=== PATIENT | female | born 1960 | race Caucasian/White ===

== ENCOUNTER 2017-07-26 13:47 | Outpatient (CLI) | payer BC ==
--- NOTE | 2017-07-26 14:41 | RAD ---
CERVICAL SPINE RADIOGRAPHS 3 VIEWS: INDICATION: Cervical region disk degeneration. FINDINGS: There is anterior metallic fusion of C4-5 with an intervening disk space prosthesis. Slight anterio r location of the metal plate relative to the anterior aspect of the C4 and C5 vertebral bodies as w ell as slight anterior location of the radiopaque markers of the disk space prosthesis projecting ju st anterior to the confines of the alutiiq disk space. There is osseous fusion of C5-6 and C6-7. Th ere is slight retrolisthesis of C4 on 5. Multilevel degenerative change present including marginal osteophyte formation and facet osteoarthritis. Left lateral mass of C1 is partially obscured by ove rlying dentition and skull base structures. No obvious acute abnormality of the dens. The right la teral mass of C1 is appropriately aligned. IMPRESSION: Postoperative and degenerative findings of the cervical spine as above. POS: KADIE
== END 2017-07-26 13:48 | disposition home or self-care (01) ==
LOC: TBSIIMAG 13:47
PROVIDERS: ATTEND Neurological Surgery
DX: M50.30 Other cervical disc degeneration, unspecified cervical region (principal); M47.812 Spondylosis without myelopathy or radiculopathy, cervical region; Z98.1 Arthrodesis status
CPT/HCPCS: 72040

== ENCOUNTER 2018-07-04 08:14 | Outpatient (CLI) | payer BC ==
--- NOTE | 2018-07-04 11:24 | MMO ---
BILATERAL SCREENING MAMMOGRAMS: Date: 07/04/18 HISTORY: 58-year-old female patient presenting for screening mammography. History of bilateral breast augmenta tion. This patient's mammogram was interpreted with the assistance of computer-aided detection. COMPARISON: 06/12/17, 03/23/16, 02/24/15. FINDINGS: There are intact bilateral retropectoral breast prostheses noted. There is a heterogeneously dense pa renchymal pattern, which may lower the sensitivity of mammography. A few benign-appearing calcificati ons are again seen in the right breast. No dominant mass or suspicious grouping of microcalcification s are seen in either breast. IMPRESSION: BIRADS 2: Benign Finding(s) Routine annual mammographic screening is recommended. POS: RAMÓN
== END 2018-07-04 08:15 | disposition home or self-care (01) ==
LOC: SCSMAMMO 08:14
PROVIDERS: ATTEND Family Medicine
DX: Z12.31 Encounter for screening mammogram for malignant neoplasm of breast (principal)
CPT/HCPCS: 77067

== ENCOUNTER 2020-07-15 09:17 | Outpatient (CLI) | payer BC ==
--- NOTE | 2020-07-15 10:25 | MMO ---
Bilateral MAMMO Bilat Screen [facility]. CLINICAL HISTORY: Patient is 60 years old and is seen for screening. The patient has the following family history of breast cancer: sister, at age 42, malignant (generic). The patient has no personal history of cancer. The patient has a history of bilateral Implants in 2002 and left Excisional Biopsy in 2001 - benign. VIEWS: The views performed were: bilateral craniocaudal with tomosynthesis; bilateral mediolateral oblique with tomosynthesis; and bilateral Implant displaced with tomosynthesis. FILMS COMPARED: The present examination has been compared to prior imaging studies performed at [facility] on 07/09/2019, and at [facility] on 03/23/2016, 06/12/2017 and 07/04/2018. This study has been interpreted with the assistance of computer-aided detection. MAMMOGRAM FINDINGS: The breasts are heterogeneously dense, which could obscure a lesion on mammography. Finding 1: There are stable benign appearing calcifications seen in both breasts. Finding 2: Normal implants are present. There are no suspicious masses, suspicious calcifications, or new areas of architectural distortion. IMPRESSION: THERE IS NO MAMMOGRAPHIC EVIDENCE OF MALIGNANCY. A ROUTINE FOLLOW-UP MAMMOGRAM IN 1 YEAR IS RECOMMENDED. THE RESULTS OF THIS EXAM WERE SENT TO THE PATIENT. ACR BI-RADS Category 2 - Benign finding MAMMOGRAPHY NOTE: 1. A negative mammogram report should not delay a biopsy if a dominant of clinically suspicious mass is present. 2. Approximately 10% to 15% of breast cancers are not detected by mammography. 3. Adenosis and dense breasts may obscure an underlying neoplasm. Reported by: LAURIE GARCIA MD Electonically Signed: [id number]
== END 2020-07-15 09:18 | disposition home or self-care (01) ==
LOC: BICMAMMO 09:17
PROVIDERS: ATTEND Family Medicine
DX: Z12.31 Encounter for screening mammogram for malignant neoplasm of breast (principal); Z80.3 Family history of malignant neoplasm of breast; Z91.89 Other specified personal risk factors, not elsewhere classified; Z98.82 Breast implant status
CPT/HCPCS: 77063; 77067

== ENCOUNTER 2020-08-06 08:32 | Outpatient (CLI) | payer BC ==
--- NOTE | 2020-08-06 10:30 | CT ---
CT CHEST WITHOUT CONTRAST: Axial tomograms were obtained through the chest following a low-dose screening protocol. INDICATION: Tobacco abuse. Long history of tobacco use. FINDINGS: No evidence of lung nodule identified. No evidence of effusion or infiltrate. There is mild apical pleural thickening with some apical pleural calcification on the left. The mediastinum is unremarkable. No adenopathy. No evidence of axillary adenopathy. Bilateral vanessa st [id number] noted. Images through the upper abdomen show a rounded calcification of the splenic h ilum measuring 1.0 cm consistent with a densely calcified splenic artery aneurysm. Review of the osseous structures reveals an anterior wedge compression deformity involving the T9 hernando tebra. Loss of anterior height over 50%. The other thoracic vertebrae maintain normal height and al ignment. There are degenerative changes. IMPRESSION: 1. No evidence of pulmonary nodule. 2. Bilateral apical pleural thickening with apical pleural calcification on the left. 3. Anterior wedge compression of the T9 vertebra. Age-indeterminate. 4. Lung RADS 2, recommend annual low-dose screening chest CT. POS: [facility]DI
--- NOTE | 2020-08-06 10:39 | CT ---
CT ABDOMEN AND PELVIS WITHOUT AND WITH IV CONTRAST: HISTORY: Microhematuria. FINDINGS: Each renal collecting system, ureter, and urinary bladder are decompressed without stone evident. No filling defects are evident within the urinary collecting system on the delayed images. Small cysts arise from the cortex of each kidney, measuring up to 0.8 cm at the posterior cortex of t he right kidney. Bilateral breast implants are partially visualized. Mild calcification throughout the arterial struc tures. Dense calcification within a 0.8 cm splenic artery aneurysm. There are postoperative changes of the left lower quadrant extending down to the internal inguinal ring. Lobular fluid distention of the lower sacral central and neural foramina has the appearance of Tarlov cysts. Left ovarian vein is somewhat dilated and tortuous. No evidence of complication. IMPRESSION: 1. No urinary tract abnormalities are demonstrated. 2. Mild atherosclerosis. 3. Small bilateral renal cysts. 4. Other incidental-type findings as detailed above. POS: BST
[2020-08-06] MEDS ORDERED: Iopamidol-370 76% 500 ML 1 ML ONE (15:04)
== END 2020-08-06 08:33 | disposition home or self-care (01) ==
LOC: BICCT 08:32
PROVIDERS: ATTEND Family Medicine
DX: Z12.2 Encounter for screening for malignant neoplasm of respiratory organs (principal); Z87.891 Personal history of nicotine dependence; R31.29 Other microscopic hematuria; I70.90 Unspecified atherosclerosis; N28.1 Cyst of kidney, acquired; J92.9 Pleural plaque without asbestos
CPT/HCPCS: 74178; G0297; Q9967

== ENCOUNTER 2021-08-16 07:33 | Outpatient (CLI) | payer BC | END 2021-08-16 07:34 | disposition home or self-care (01) | LOC: BICCT 07:33 | PROVIDERS: ATTEND Family Medicine | DX: Z12.2 Encounter for screening for malignant neoplasm of respiratory organs (principal); Z87.891 Personal history of nicotine dependence; J92.9 Pleural plaque without asbestos; J94.8 Other specified pleural conditions | CPT/HCPCS: 71271 ==

== ENCOUNTER 2021-08-16 07:35 | Outpatient (CLI) | payer BC | END 2021-08-16 07:36 | disposition home or self-care (01) | LOC: BICMAMMO 07:35 | PROVIDERS: ATTEND Family Medicine | DX: Z12.31 Encounter for screening mammogram for malignant neoplasm of breast (principal); N64.89 Other specified disorders of breast; Z91.89 Other specified personal risk factors, not elsewhere classified; Z98.82 Breast implant status; Z80.3 Family history of malignant neoplasm of breast | CPT/HCPCS: 77063; 77067 ==

== ENCOUNTER 2021-08-24 08:12 | Outpatient (CLI) | payer BC | END 2021-08-24 08:13 | disposition home or self-care (01) | LOC: BICMAMMO 08:12 | PROVIDERS: ATTEND Family Medicine | DX: R92.2 Inconclusive mammogram (principal) | CPT/HCPCS: G0279 ==

== ENCOUNTER 2022-08-23 07:28 | Outpatient (CLI) | payer OTHER | END 2022-08-23 07:29 | disposition home or self-care (01) | LOC: BICCT 07:28 | PROVIDERS: ATTEND Family Medicine | DX: Z12.2 Encounter for screening for malignant neoplasm of respiratory organs (principal); Z87.891 Personal history of nicotine dependence | CPT/HCPCS: 71271 ==

== ENCOUNTER 2022-09-27 08:00 | Outpatient (CLI) | payer OTHER | END 2022-09-27 08:01 | disposition home or self-care (01) | LOC: BICMAMMO 08:00 | PROVIDERS: ATTEND Family Medicine | DX: Z12.31 Encounter for screening mammogram for malignant neoplasm of breast (principal); Z80.3 Family history of malignant neoplasm of breast; Z91.89 Other specified personal risk factors, not elsewhere classified; Z98.82 Breast implant status | CPT/HCPCS: 77063; 77067 ==

== ENCOUNTER 2023-10-02 13:46 | Outpatient (CLI) | payer OTHER | END 2023-10-02 13:47 | disposition home or self-care (01) | LOC: BICMAMMO 13:46 | PROVIDERS: ATTEND Family Medicine | DX: Z12.31 Encounter for screening mammogram for malignant neoplasm of breast (principal); Z12.2 Encounter for screening for malignant neoplasm of respiratory organs; Z80.3 Family history of malignant neoplasm of breast; Z91.89 Other specified personal risk factors, not elsewhere classified; Z98.82 Breast implant status; Z87.891 Personal history of nicotine dependence | CPT/HCPCS: 71271; 77063; 77067 ==

== ENCOUNTER 2024-11-18 08:57 | Outpatient (CLI) | payer MEDICARE | END 2024-11-18 08:58 | disposition home or self-care (01) | LOC: BICMAMMO 08:57 | PROVIDERS: ATTEND Family Medicine | DX: Z12.31 Encounter for screening mammogram for malignant neoplasm of breast (principal); Z12.2 Encounter for screening for malignant neoplasm of respiratory organs; Z78.0 Asymptomatic menopausal state; Z87.891 Personal history of nicotine dependence; Z80.3 Family history of malignant neoplasm of breast; Z98.82 Breast implant status; Z91.89 Other specified personal risk factors, not elsewhere classified | CPT/HCPCS: 71271; 77063; 77067; 77080 ==